=== PATIENT | male | born 1960 | race Caucasian/White ===

== ENCOUNTER 2021-08-30 18:15 | Emergency (ER) | payer OTHER ==
[~2021-08-30] VITALS: Ht 177.8 cm; Wt 88.5 kg
[2021-08-30 18:32] VITALS: BP 140/76
--- NOTE | 2021-08-30 19:00 | NUR ---
COVID SWAB DONE AND SENT TO LAB
--- NOTE | 2021-08-30 20:00 | NUR ---
Patient discharged to home in stable condition. Written and verbal after care instructions given. Patient verbalizes understanding of instruction. pt ambulatory with a steady gait. Pt escorted by [employer]
== END 2021-08-30 20:00 | disposition home or self-care (01) ==
LOC: ER 18:22
DX: Z02.89 Encounter for other administrative examinations (principal); Z20.822 Contact with and (suspected) exposure to COVID-19; I25.2 Old myocardial infarction; F17.200 Nicotine dependence, unspecified, uncomplicated; Z60.2 Problems related to living alone
CPT/HCPCS: 87426; 99283; C9803